=== PATIENT | female | born 1960 | race Caucasian/White ===

== ENCOUNTER 2016-08-22 23:55 | Emergency (ER) | payer BC ==
--- NOTE | 2016-08-23 00:25 | EDM.PDOC ---
ED HPI LOWER BACK PAIN/INJURY - General Chief Complaint: Back Pain or Injury Stated Complaint: PAIN IN BACK AND LEGS Time Seen by Provider: 08/23/16 00:24 - History of Present Illness INITIAL COMMENTS - FREE TEXT/NARRATIVE: 56-year-old female presents emergency room with severe back pain. This is been an ongoing problem progressively getting worse over the last couple months. Patient had her second back surgery in the middle of May and her back pain is worse after the surgery. She has radicular pain down her right leg occasionally down her left leg. She denies loss of bowel or bladder control. She's also being evaluated for abdominal pain. And is scheduled to see a specialist for this on Thursday. She had a CAT scan done at [place] this last week that was reported as normal according to the patient and her spouse. her abdominal pain seems to be making her back pain much worse. She has no associated nausea vomiting with this certainly no diarrhea she has constipation and uses when necessary stool softeners and milk of magnesia. She has not had any fevers or chills.she believes her abdominal pain is worse she has more difficulty breathing. The patient smokes at least a pack a day. She is cautioned about the risk of smoking especially with her back and breathing problems. - Related Data Allergies/ADRs: Allergies Allergy/AdvReac Type Severity Reaction Status Date / Time ceftriaxone [From Rocephin] Allergy Swelling Verified 08/23/16 00:09 Bandages all tape adhesives Allergy Swelling Uncoded 08/23/16 00:09 Home Meds: Home Meds Estradiol 2 mg PO DAILY 11/29/13 [History] DULoxetine [Cymbalta] 120 mg PO DAILY 06/13/16 [History] Hydrochlorothiazide 25 mg PO BID 06/13/16 [History] atorvaSTATin [Lipitor] 40 mg PO BEDTIME 06/13/16 [History] oxyCODONE HCl/Acetaminophen [oxyCODONE-Acetaminophen 5-325] 1 - 2 tab PO Q6H PRN 06/13/16 [History] Cyclobenzaprine [Flexeril] 10 mg PO BID PRN 08/23/16 [History] Eszopiclone [Lunesta] 2 mg PO BEDTIME PRN 08/23/16 [History] Gabapentin [Neurontin] 300 mg PO TID 08/23/16 [History] Lactulose [Constulose] 10 gm PO Q12H #450 ml 08/23/16 [Rx] Morphine Sulfate [Morphine Sulfate ER] 30 mg PO ASDIRECTED 08/23/16 [History] Potassium Citrate [Urocit-K] 10 meq PO TID 08/23/16 [History] Past Medical History Cardiovascular History: Reports: Other (see below) Other Cardiovascular History: "swelling" Respiratory History: Reports: Pneumonia, recurrent [employer]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: Musculoskeletal History: Reports: Back pain, chronic - Past Surgical History HEENT Surgical History: Reports: Tonsillectomy GI Surgical History: Reports: Cholecystectomy, Hernia, abdominal Female Surgical History: Reports: Hysterectomy Neurological Surgical History: Reports: Lumbar spine Musculoskeletal Surgical History: Reports: ORIF, Other (see below) Other Musculoskeletal Surgeries/Procedures:: back surgery x 2 Social & Family History - Family History Family Medical History: Noncontributory - Tobacco Use Smoking Status *Q: Current Every Day Smoker Years of Tobacco use: 30 Packs/Tins Daily: 1 Used Tobacco, but Quit: No Second Hand Smoke Exposure: No - Caffeine Use Caffeine Use: Reports: Coffee, Tea - Alcohol Use Days Per Week of Alcohol Use: 0 Number of Drinks Per Day: 0 Total Drinks Per Week: 0 - Recreational Drug Use Recreational Drug Use: No Drug Use in Last 12 Months: No ED ROS GENERAL - Review of Systems Review Of Systems: See Below Constitutional: Reports: no symptoms. Denies: fever, chills HEENT: Reports: No symptoms Respiratory: Reports: shortness of breath, cough. Denies: wheezing, pleuritic chest pain, hemoptysis Cardiovascular: Reports: No symptoms. Denies: Chest pain GI/Abdominal: Reports: Abdominal pain, Constipation. Denies: Diarrhea, Nausea, Vomiting : Reports: no symptoms Musculoskeletal: Reports: back pain, leg pain Skin: Reports: no symptoms Neurological: Reports: no symptoms. Denies: confusion, dizziness, headache ED EXAM,LOWER BACK PAIN/INJURY - Physical Exam Exam: See Below Exam Limited By: No limitations General Appearance: alert, moderate distress (she has severe pain at this time) Eye Exam: bilateral eye: normal inspection Nose: normal inspection, normal mucosa, no blood Throat/Mouth: Normal inspection, Normal lips, Normal teeth, Normal gums, Normal oropharynx, Normal voice, No airway compromise Head: atraumatic, normocephalic Neck: normal inspection, supple, non-tender, full range of motion. No: lymphadenopathy (L), lymphadenopathy (R) Respiratory/Chest: no respiratory distress, lungs clear, decreased breath sounds , other (initially she is breathing a little fast she is not breathing deep he states this is because of the abdominal pain). No: normal breath sounds Cardiovascular: normal peripheral pulses, regular rate, rhythm, no edema GI/Abdominal: normal bowel sounds, soft, other (diffuse discomfort in all 4 quadrants no rigidity no rebound or guarding) Back Exam: muscle spasm (she has noted muscle spasm in the lumbar region bilaterally). No: CVA tenderness (L), CVA tenderness (R), vertebral tenderness Neurological: alert, normal mood/affect Course - Vital Signs Last Recorded V/S: Last Vital Signs Temp 37.0 C 08/23/16 00:03 Pulse 82 08/23/16 03:14 Resp 18 08/23/16 03:14 BP 145/85 H 08/23/16 03:14 Pulse Ox 85 L 08/23/16 03:14 - Orders/Labs/Meds Orders: Active Orders 24 hr Category Date Time Status RT Aerosol Therapy [RC] ASDIRECTED Care 08/23/16 00:44 Active RT Post Treatment Assessment [RC] Click To Edit Care 08/23/16 02:54 Active RT Pre-Treatment Assessment [RC] Click To Edit Care 08/23/16 02:54 Active Abdomen 2V AP Flat Upright [CR] Stat Exams 08/23/16 02:08 Taken Abdomen Pelvis w Cont [CT] Stat Exams 08/23/16 02:03 Stop Req Chest 1V Frontal [CR] Stat Exams 08/23/16 00:41 Taken Labs: Laboratory Tests 08/23/16 08/23/16 Range/Units 00:58 00:58 WBC 11.00 H (3.98-10.04) K/mm3 RBC 4.78 (3.98-5.22) M/mm3 Hgb 16.1 H (11.2-15.7) gm/L Hct 47.1 H (34.1-44.9) % MCV 98.5 H (79.4-94.8) fl MCH 33.7 H (25.6-32.2) pg MCHC 34.2 (32.2-35.5) g/dl RDW Std Deviation 46.4 H (36.4-46.3) fL Plt Count 270 (182-369) K/mm3 MPV 9.0 L (9.4-12.3) fl Neutrophils % (Manual) 53 (40-60) % Band Neutrophils % 0 (0-10) % Lymphocytes % (Manual) 40 (20-40) % Atypical Lymphs % 0 % Monocytes % (Manual) 6 (2-10) % Eosinophils % (Manual) 1 (0.7-5.8) % Basophils % (Manual) 0 L (0.1-1.2) Platelet Estimate Adequate Plt Morphology Comment Normal Polychromasia 1+ slight Macrocytosis Rare Spherocytes Few RBC Morph Comment Not Reportable Sodium 140 (136-145) mEq/L Potassium 3.8 (3.5-5.1) mEq/L Chloride 99 (98-107) mEq/L Carbon Dioxide 32 (21-32) mEq/L Anion Gap 12.8 (5-15) BUN 12 (7-18) mg/dL Creatinine 0.8 (0.55-1.02) mg/dL Est Cr Clr Drug Dosing 72.34 mL/min Estimated GFR (MDRD) > 60 (>60) mL/min BUN/Creatinine Ratio 15.0 (14-18) Glucose 103 (74-106) mg/dL Calcium 8.7 (8.5-10.1) mg/dL Total Bilirubin 0.2 (0.2-1.0) mg/dL AST 12 L (15-37) U/L ALT 20 (14-59) U/L Alkaline Phosphatase 86 (46-116) U/L Total Protein 6.5 (6.4-8.2) g/dl Albumin 3.0 L (3.4-5.0) g/dl Globulin 3.5 gm/dL Albumin/Globulin Ratio 0.9 L (1-2) Lipase 104 (73-393) U/L Meds: Medications Discontinued Medications Generic Name Dose Route Start Last Admin Trade Name Freq PRN Reason Stop Dose Admin Albuterol 6 gm 08/23/16 02:53 08/23/16 03:27 Proventil Hfa INH 08/23/16 02:54 Not Given ONETIME ONE Albuterol/Ipratropium 3 ml 08/23/16 00:43 08/23/16 00:59 Duoneb 3.0-0.5 Mg/3 Ml NEB 08/23/16 00:44 3 ml ONETIME ONE Administration Sodium Chloride 500 mls @ 999 mls/hr 08/23/16 02:01 08/23/16 02:10 Normal Saline IV 08/23/16 02:31 999 mls/hr .BOLUS ONE Administration Sodium Chloride 1,000 mls @ 125 mls/hr 08/23/16 02:15 Normal Saline IV ASDIRECTED [facility] Morphine Sulfate 4 mg 08/23/16 02:00 08/23/16 02:05 Morphine IVPUSH 08/23/16 02:01 4 mg ONETIME ONE Administration - Re-Assessments/Exams Free Text/Narrative Re-Assessment/Exam: 08/23/16 01:18 patient is breathing better and is much more comfortable after nebulizer treatment 08/23/16 02:48 patient had return of her pain she was given 4 mg of morphine and is doing much better. X-ray of her abdomen shows considerable stool accumulation in thinking a lot of her abdominal pain might be related to constipation. Her O2 saturation is been suboptimal before we gave her morphine. She did okay and supplemental oxygen. At this time we are trying her off the oxygen again to see how she does. we will try her on and albuterol MDI. 08/23/16 03:04 patient is refusing oxygen at this time and as it turns out she uses an albuterol inhaler at home.she has a followup in the clinic on Thursday and wants to think about additional breathing therapy. She is in agreement to try the lactulose for constipation. Departure - Departure Time of Disposition: 03:05 Disposition: Home, Self-Care 01 Clinical Impression: Back pain, Constipation, Abdominal pain, Hypoxia Prescriptions: Lactulose [Constulose] 10 gm PO Q12H #450 ml Instructions: Hypoxemia, Back Pain, Adult, Constipation, Adult, [id number], Abdominal Pain, Adult, [id number] Referrals: Jenni Luu PA-C [Primary Care Provider] - Forms: ED Department Discharge Additional Instructions: Return to the emergency room with any questions or problems. Your started on lactulose 1 tablespoon twice daily for your constipation. Followup with your regular provider as soon as she can in the clinic to discuss oxygen therapy and increasing your inhaler therapy for your lung disease.also discuss oxygen therapy - My Orders Last 24 Hours: My Active Orders 08/23/16 00:41 Chest 1V Frontal [CR] Stat 08/23/16 00:44 RT Aerosol Therapy [RC] ASDIRECTED 08/23/16 02:03 Abdomen Pelvis w Cont [CT] Stat 08/23/16 02:08 Abdomen 2V AP Flat Upright [CR] Stat 08/23/16 02:54 RT Post Treatment Assessment [RC] Click To Edit RT Pre-Treatment Assessment [RC] Click To Edit - Assessment/Plan Last 24 Hours: My Active Orders 08/23/16 00:41 Chest 1V Frontal [CR] Stat 08/23/16 00:44 RT Aerosol Therapy [RC] ASDIRECTED 08/23/16 02:03 Abdomen Pelvis w Cont [CT] Stat 08/23/16 02:08 Abdomen 2V AP Flat Upright [CR] Stat 08/23/16 02:54 RT Post Treatment Assessment [RC] Click To Edit RT Pre-Treatment Assessment [RC] Click To Edit
[2016-08-23] MEDS ORDERED: Albuterol/Ipratropium 3.0-0.5 MG/3 ML Neb Soln NEB ONE (00:43)
[2016-08-23] MEDS ORDERED: Morphine 4 MG/ML Syringe IVPUSH ONE (02:00)
[2016-08-23] MEDS ORDERED: Sodium Chloride 0.9% 500 ML IV ONE (02:01)
[2016-08-23] MEDS ORDERED: Sodium Chloride 0.9% 1,000 ML IV SCH (02:15)
[2016-08-23] MEDS ORDERED: Albuterol 6.7 GM Inhaler INH ONE (02:53)
[2016-08-23 03:16] VITALS: BP 145/85
--- NOTE | 2016-08-25 07:37 | CR ---
Abdomen: Supine and upright views of the abdomen were obtained. Surgical clips seen within the upper right abdomen from prior cholecystectomy. Additional surgical clips are seen overlying the lower lumbar spine presumably from lower lumbar spine surgery. Slight increased stool within the colon is seen. Bowel gas pattern is otherwise unremarkable. No free air is seen. No abnormal calcifications or discrete soft tissue abnormality is seen. Impression: 1. Slight increased stool within the colon. 2. Other incidental findings. Diagnostic code #2
--- NOTE | 2016-08-25 07:37 | CR ---
Chest: Portable view of the chest was obtained. Comparison: No previous study. Heart size and mediastinum are normal. Lungs are clear. Bony structures are grossly intact. Impression: 1. Nothing acute is identified on portable chest x-ray. Diagnostic code #1
== END 2016-08-23 03:27 | disposition home or self-care (01) ==
LOC: JD.ED 23:55
DX: M54.9 Dorsalgia, unspecified (principal); K59.00 Constipation, unspecified; R09.02 Hypoxemia; F17.210 Nicotine dependence, cigarettes, uncomplicated; Z90.49 Acquired absence of other specified parts of digestive tract; Z98.890 Other specified postprocedural states; Z90.710 Acquired absence of both cervix and uterus; Z79.899 Other long term (current) drug therapy; Z88.1 Allergy status to other antibiotic agents
CPT/HCPCS: 36415; 71010; 74020; 80053; 83690; 85025; 94664; 96361; 96374; 99284; J2270; J7040

== ENCOUNTER 2016-08-25 12:24 | Emergency (ER) | payer BC ==
[2016-08-25 12:36] VITALS: BP 128/76
[2016-08-25] MEDS ORDERED: Sodium Chloride 0.9% 10 ML Syringe FLUSH PRN (12:51)
[2016-08-25] MEDS ORDERED: Albuterol 0.083% 2.5 MG/3 ML Neb Soln NEB ONE ×2 (12:51→14:00)
[2016-08-25] MEDS ORDERED: methylPREDNISolone Sodium Succinate 125 MG/2 ML SDV IVPUSH ONE (12:51)
--- NOTE | 2016-08-25 14:42 | CR ---
Chest: Portable view of the chest was obtained. Comparison: Previous chest x-ray of 08/23/16. Heart size and mediastinum are within normal limits for portable technique. Lungs are clear with no acute infiltrates. Bony structures are grossly intact. Surgical clips are seen from prior cholecystectomy. Impression: 1. Incidental findings. Nothing acute is identified on portable chest x-ray. Diagnostic code #2
--- NOTE | 2016-08-25 14:47 | EDM.PDOC ---
ED HISTORY OF PRESENT ILLNESS - General Chief Complaint: Respiratory Problem Stated Complaint: LOW OXYGEN SENT BY CLINIC Time Seen by Provider: 08/25/16 12:36 Source of Information: Reports: Patient, RN notes reviewed - History of Present Illness INITIAL COMMENTS - FREE TEXT/NARRATIVE: 56-year-old female has been sent over from clinic for evaluation of hypoxia. She presented to the clinic with concerns of low back and abdominal discomfort. However screening vitals showed sats in the mid-80s. Therefore transferred here for further evaluation. She does smoke, I suspect more than her stated less than one pack daily. She has been coughing frequently but that has been mostly dry nonproductive. She denies chest pain. She states she is really not feel any more short of breath than "usual". No recent fever or chills. His been having a lot of difficulty with low back pain this past few weeks. She did present here to the ED just 3 days ago with concerns of more severe low back pain than usual. She does take morphine twice a day chronically and also oxycodone 5 mg 1- 2 tabs every 4 hours when necessary pain. She states she does get constipated at times. Asad discomfort is intermittent upper and lower abdominal. No recent nausea or vomiting. No recent voiding symptomatology. - Related Data Allergies/ADRs: Allergies Allergy/AdvReac Type Severity Reaction Status Date / Time ceftriaxone [From Rocephin] Allergy Swelling Verified 08/25/16 12:36 Bandages all tape adhesives Allergy Swelling Uncoded 08/25/16 12:36 Home Meds: Home Meds Estradiol 2 mg PO DAILY 11/29/13 [History] DULoxetine [Cymbalta] 60 mg PO BID 06/13/16 [History] Hydrochlorothiazide 25 mg PO BID 06/13/16 [History] atorvaSTATin [Lipitor] 40 mg PO BEDTIME 06/13/16 [History] Cyclobenzaprine [Flexeril] 10 mg PO TID PRN 08/23/16 [History] Eszopiclone [Lunesta] 2 mg PO BEDTIME PRN 08/23/16 [History] Gabapentin [Neurontin] 300 mg PO TID 08/23/16 [History] Lactulose [Constulose] 10 gm PO Q12H #450 ml 08/23/16 [Rx] Morphine Sulfate [Morphine Sulfate ER] 60 mg PO DAILY 08/23/16 [History] Potassium Citrate [Urocit-K] 10 meq PO TID 08/23/16 [History] Aspirin 81 mg PO DAILY 08/25/16 [History] Esomeprazole [NexIUM] 40 mg PO ACBREAKFAST 08/25/16 [History] Morphine Sulfate [Morphine Sulfate ER] 30 mg PO BEDTIME 08/25/16 [History] oxyCODONE 1 - 2 tab PO Q4H PRN 08/25/16 [History] Past Medical History Cardiovascular History: Reports: Other (see below) Other Cardiovascular History: "swelling" Respiratory History: Reports: Pneumonia, recurrent Genitourinary History: Reports: Renal calculus [employer]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: Musculoskeletal History: Reports: Back pain, chronic - Past Surgical History HEENT Surgical History: Reports: Tonsillectomy GI Surgical History: Reports: Cholecystectomy, Hernia, abdominal Female Surgical History: Reports: Hysterectomy Neurological Surgical History: Reports: Lumbar spine Musculoskeletal Surgical History: Reports: ORIF Social & Family History - Family History Family Medical History: Noncontributory - Tobacco Use Smoking Status *Q: Current Every Day Smoker Years of Tobacco use: 40 Packs/Tins Daily: 1 Used Tobacco, but Quit: No Second Hand Smoke Exposure: No - Caffeine Use Caffeine Use: Reports: Coffee, Tea - Alcohol Use Days Per Week of Alcohol Use: 0 Number of Drinks Per Day: 0 Total Drinks Per Week: 0 - Recreational Drug Use Recreational Drug Use: No Drug Use in Last 12 Months: No ED ROS GENERAL - Review of Systems Review Of Systems: See Below Constitutional: Denies: fever, chills HEENT: Denies: Sinus problem, Throat pain, Throat swelling Respiratory: Reports: shortness of breath (mild chronically, no worse than usual ), wheezing (frequent, chronic), cough (mostly nonproductive, chronic). Denies : hemoptysis Cardiovascular: Denies: Chest pain GI/Abdominal: Reports: Constipation (intermittent). Denies: Abdominal pain, Diarrhea, Nausea, Vomiting : Reports: no symptoms Musculoskeletal: Reports: back pain (severe, chronic) Skin: Denies: rash Neurological: Reports: difficulty walking (increased back pain with ambulation) . Denies: weakness ED EXAM, GENERAL - Physical Exam Exam: See Below General Appearance: alert, moderate distress Eye Exam: bilateral eye: PERRL Nose: normal inspection Throat/Mouth: Normal inspection, Normal oropharynx Head: atraumatic. No: facial swelling Neck: supple Respiratory/Chest: respiratory distress (moderate tachypnea), decreased breath sounds (bilateral), wheezing (I'll). No: rhonchi, stridor Cardiovascular: tachycardia GI/Abdominal: soft, tender (mild tenderness upper mid abdomen and lower mid abdomen). No: guarding Back Exam: No: CVA tenderness (L), CVA tenderness (R) Extremities: No: pedal edema, leg pain Neurological: no motor/sensory deficits Skin Exam: Warm, Dry, Normal color, No rash Course - Vital Signs Last Recorded V/S: Last Vital Signs Temp 97.8 F 08/25/16 12:31 Pulse 101 H 08/25/16 12:31 Resp 23 H 08/25/16 12:31 BP 128/76 08/25/16 12:31 Pulse Ox 91 L 08/25/16 14:17 - Orders/Labs/Meds Orders: Active Orders 24 hr Category Date Time Status Peripheral IV Care [RC] . DIRECTED Care 08/25/16 12:51 Active RT Aerosol Therapy [RC] ASDIRECTED Care 08/25/16 12:51 Active RT Aerosol Therapy [RC] ASDIRECTED Care 08/25/16 14:00 Active Sodium Chloride 0.9% [Saline Flush] Med 08/25/16 12:51 Active 10 ml FLUSH ASDIRECTED PRN Peripheral IV Insertion Adult [OM.PC] Stat Oth 08/25/16 12:50 Ordered Medication Orders Sodium Chloride (Saline Flush) 10 ml FLUSH ASDIRECTED PRN PRN Reason: Keep Vein Open Last Admin: 08/25/16 13:12 Dose: 10 ml Labs: Laboratory Tests 08/25/16 08/25/16 08/25/16 Range/Units 13:00 13:00 13:00 WBC 12.15 H (3.98-10.04) K/mm3 RBC 4.61 (3.98-5.22) M/mm3 Hgb 15.6 (11.2-15.7) gm/L Hct 45.0 H (34.1-44.9) % MCV 97.6 H (79.4-94.8) fl MCH 33.8 H (25.6-32.2) pg MCHC 34.7 (32.2-35.5) g/dl RDW Std Deviation 45.1 (36.4-46.3) fL Plt Count 291 (182-369) K/mm3 MPV 9.3 L (9.4-12.3) fl Neut % (Auto) 61.4 (34.0-71.1) % Lymph % (Auto) 24.6 (19.3-51.7) % [place] % (Auto) 11.6 (4.7-12.5) % Eos % (Auto) 2.0 (0.7-5.8) Baso % (Auto) 0.2 (0.1-1.2) % Neut # 7.46 H (1.56-6.13) K/mm3 Lymph # 2.99 (1.18-3.74) K/mm3 [place] # 1.41 H (0.24-0.36) K/mm3 Eos # 0.24 (0.04-0.36) K/mm3 Baso # 0.03 (0.01-0.08) K/mm3 D-Dimer, Quantitative 0.49 (0.19-0.59) mg/L Puncture Site ABG pH (7.35-7.45) ABG pCO2 (35.0-45.0) mmHg ABG pO2 (80.0-100.0) mmHg ABG HCO3 (22.0-26.0) meq/L ABG O2 Saturation (96.0-97.0) % ABG Base Excess (-2-2.0) ABG Carboxyhemoglobin (0.00-1.50) %THgb A-a Gradient mmHg FiO2 (21.00-100.00) % Sodium (136-145) mEq/L Potassium (3.5-5.1) mEq/L Chloride (98-107) mEq/L Carbon Dioxide (21-32) mEq/L Anion Gap (5-15) BUN (7-18) mg/dL Creatinine (0.55-1.02) mg/dL Est Cr Clr Drug Dosing Estimated GFR (MDRD) (>60) mL/min BUN/Creatinine Ratio (14-18) Glucose (74-106) mg/dL Calcium (8.5-10.1) mg/dL Total Bilirubin (0.2-1.0) mg/dL AST (15-37) U/L ALT (14-59) U/L Alkaline Phosphatase (46-116) U/L C-Reactive Protein 4.1 H* (<1.0) mg/dL Total Protein (6.4-8.2) g/dl Albumin (3.4-5.0) g/dl Globulin gm/dL Albumin/Globulin Ratio (1-2) 08/25/16 08/25/16 08/25/16 Range/Units 13:00 15:14 15:14 WBC (3.98-10.04) K/mm3 RBC (3.98-5.22) M/mm3 Hgb (11.2-15.7) gm/L Hct (34.1-44.9) % MCV (79.4-94.8) fl MCH (25.6-32.2) pg MCHC (32.2-35.5) g/dl RDW Std Deviation (36.4-46.3) fL Plt Count (182-369) K/mm3 MPV (9.4-12.3) fl Neut % (Auto) (34.0-71.1) % Lymph % (Auto) (19.3-51.7) % [place] % (Auto) (4.7-12.5) % Eos % (Auto) (0.7-5.8) Baso % (Auto) (0.1-1.2) % Neut # (1.56-6.13) K/mm3 Lymph # (1.18-3.74) K/mm3 [place] # (0.24-0.36) K/mm3 Eos # (0.04-0.36) K/mm3 Baso # (0.01-0.08) K/mm3 D-Dimer, Quantitative (0.19-0.59) mg/L Puncture Site Lt radial ABG pH 7.45 (7.35-7.45) ABG pCO2 45.3 H (35.0-45.0) mmHg ABG pO2 48.0 L (80.0-100.0) mmHg ABG HCO3 30.8 H (22.0-26.0) meq/L ABG O2 Saturation 88.8 L (96.0-97.0) % ABG Base Excess 6.1 H (-2-2.0) ABG Carboxyhemoglobin 9.9 H (0.00-1.50) %THgb A-a Gradient 37 mmHg FiO2 21.00 (21.00-100.00) % Sodium 135 L (136-145) mEq/L Potassium 2.9 L (3.5-5.1) mEq/L Chloride 97 L (98-107) mEq/L Carbon Dioxide 32 (21-32) mEq/L Anion Gap 8.9 (5-15) BUN 7 (7-18) mg/dL Creatinine 0.7 (0.55-1.02) mg/dL Est Cr Clr Drug Dosing TNP Estimated GFR (MDRD) > 60 (>60) mL/min BUN/Creatinine Ratio 10.0 L (14-18) Glucose 112 H (74-106) mg/dL Calcium 8.8 (8.5-10.1) mg/dL Total Bilirubin 0.5 (0.2-1.0) mg/dL AST 15 (15-37) U/L ALT 21 (14-59) U/L Alkaline Phosphatase 98 (46-116) U/L C-Reactive Protein (<1.0) mg/dL Total Protein 6.5 (6.4-8.2) g/dl Albumin 3.1 L (3.4-5.0) g/dl Globulin 3.4 gm/dL Albumin/Globulin Ratio 0.9 L (1-2) Meds: Medications Generic Name Dose Route Start Last Admin Trade Name Freq PRN Reason Stop Dose Admin Sodium Chloride 10 ml 08/25/16 12:51 08/25/16 13:12 Saline Flush FLUSH 10 ml ASDIRECTED PRN Administration Keep Vein Open Discontinued Medications Generic Name Dose Route Start Last Admin Trade Name Freq PRN Reason Stop Dose Admin Albuterol 2.5 mg 08/25/16 12:51 08/25/16 13:08 Proventil Neb Soln NEB 08/25/16 12:52 2.5 mg ONETIME ONE Administration Albuterol 2.5 mg 08/25/16 14:00 08/25/16 14:17 Proventil Neb Soln NEB 08/25/16 14:01 2.5 mg ONETIME ONE Administration Methylprednisolone Sodium Succinate 125 mg 08/25/16 12:51 08/25/16 13:10 Solu-Medrol IVPUSH 08/25/16 12:52 125 mg ONETIME ONE Administration - Re-Assessments/Exams Free Text/Narrative Re-Assessment/Exam: 08/25/16 14:47 d-dimer is come back negative, white blood count and C-reactive protein both mildly elevated. Chest x-ray is clear, does not show infiltrate. Sats have been running about 88-91% on 2 L nasal cannula. Turned her oxygen off about 5 or 10 minutes ago. Sats did drop to the 85 to 86% range. I am going to leave her on room air for at least 15 minutes and then check ABGs. She may need home oxygen. 08/25/16 16:00. PO2 is 88.9, ABGs room air. Of note her carboxyhemoglobin was 9.9%. I visit with patient and her about that they have electric heat so faulty furnace is not concern. They do have a gas stove use that only for cooking. He has no symptoms of headache shortness of breath or any other signs or symptoms for carbon monoxide poisoning. It appears that this is due to her heavy smoking. This has been discussed with patient and her . She admits that she is smoking more with her increased low back pain. I'm going to prescribe an antibiotic for her, have her take prednisone for the next week and also have her start using a nebulizer, albuterol nebs every 4-6 hours while awake. She will follow up with Jenni Luu, her provider at the clinic in about 3-4 days. I have discussed this with so she is aware. Discharge instructions as documented Departure - Departure Time of Disposition: 16:03 Disposition: Home, Self-Care 01 Condition: poor Clinical Impression: COPD exacerbation, Hypoxia, Bronchitis Referrals: Jenni Luu PA-C [Primary Care Provider] - Forms: ED Department Discharge Additional Instructions: Stop smoking or at least cut back as best you can, albuterol neb q 4 to 6 hr, zpack and prednisone as prescribed, follow up clinic with Jenni in about 3 to 4 days, call for appt. , return to ED as needed. - My Orders Last 24 Hours: My Active Orders 08/25/16 12:50 Peripheral IV Insertion Adult [OM.PC] Stat 08/25/16 12:51 Peripheral IV Care [RC] . DIRECTED RT Aerosol Therapy [RC] ASDIRECTED Sodium Chloride 0.9% [Saline Flush] 10 ml FLUSH ASDIRECTED PRN 08/25/16 14:00 RT Aerosol Therapy [RC] ASDIRECTED - Assessment/Plan Last 24 Hours: My Active Orders 08/25/16 12:50 Peripheral IV Insertion Adult [OM.PC] Stat 08/25/16 12:51 Peripheral IV Care [RC] . DIRECTED RT Aerosol Therapy [RC] ASDIRECTED Sodium Chloride 0.9% [Saline Flush] 10 ml FLUSH ASDIRECTED PRN 08/25/16 14:00 RT Aerosol Therapy [RC] ASDIRECTED
== END 2016-08-25 16:35 | disposition home or self-care (01) ==
LOC: JD.ED 12:24
DX: J44.1 Chronic obstructive pulmonary disease with (acute) exacerbation (principal); J40 Bronchitis, not specified as acute or chronic; F17.210 Nicotine dependence, cigarettes, uncomplicated; Z87.01 Personal history of pneumonia (recurrent); Z98.890 Other specified postprocedural states; Z90.49 Acquired absence of other specified parts of digestive tract; Z90.710 Acquired absence of both cervix and uterus; Z79.82 Long term (current) use of aspirin; Z79.899 Other long term (current) drug therapy; Z88.1 Allergy status to other antibiotic agents
CPT/HCPCS: 36415; 36600; 71010; 80053; 82375; 82803; 85025; 85379; 86140; 94640; 94664; 96374; 99284; J2930; J7050

== ENCOUNTER 2016-09-02 21:36 | Emergency (ER) | payer BC ==
[2016-09-02 21:49] VITALS: BP 129/74
[2016-09-02] MEDS ORDERED: Sodium Chloride 0.9% 10 ML Syringe FLUSH PRN (21:55)
[2016-09-02] MEDS ORDERED: Sodium Chloride 0.9% 1,000 ML IV SCH (22:00)
[2016-09-02] MEDS ORDERED: LORazepam 1 MG Tab PO ONE (22:21)
[2016-09-02] MEDS ORDERED: Acetaminophen 325 MG Tab PO ONE (23:19)
[2016-09-03] MEDS ORDERED: Albuterol/Ipratropium 3.0-0.5 MG/3 ML Neb Soln NEB ONE (00:23)
[2016-09-03] MEDS ORDERED: methylPREDNISolone Sodium Succinate 125 MG/2 ML SDV IVPUSH ONE (00:23)
--- NOTE | 2016-09-03 00:41 | EDM.PDOC ---
<Wilberto Uribe Nader - Last Filed: 09/03/16 08:52> ED HISTORY OF PRESENT ILLNESS - General Chief Complaint: Respiratory Problem Stated Complaint: SOB Time Seen by Provider: 09/02/16 21:56 Source of Information: Reports: Patient, Family (), RN notes reviewed - History of Present Illness INITIAL COMMENTS - FREE TEXT/NARRATIVE: 56-year-old female comes in with cough, fever and upper abdominal discomfort. She has been having difficulty with cough for about the past 2 weeks. She's been evaluated a couple of prior times here in the ED for cough and shortness of breath and also has been seeing her provider at the clinic. SHe was started on a Z-Brennen and prednisone about 8 days ago. She's finished both of those. Today she started with worsening upper abd discomfort which she has had off and on for the past several weeks. She's been diagnosed with constipation. She is on morphine in addition to her other meds for chronic low back pain. She has been advised to stop smoking but admitted the last time I saw her that she is smoking more because of her increased low back discomfort. Her fever and chills just started today. She's now been off the Z-Brennen for 3 days. She states that she has been having regular BMs about once or twice a day. She denies voiding symptomatology. Her discomfort today is primarily right upper abdomen with some radiation to the back. She did have her gallbladder removed about 2 years ago - Related Data Allergies/ADRs: Allergies Allergy/AdvReac Type Severity Reaction Status Date / Time ceftriaxone [From Rocephin] Allergy Swelling Verified 09/02/16 21:43 NSAIDS (Non-Steroidal Allergy Abdominal Verified 09/02/16 21:43 Anti-Inflamma Pain Bandages all tape adhesives Allergy Swelling Uncoded 09/02/16 21:43 Home Meds: Home Meds Estradiol 2 mg PO DAILY 11/29/13 [History] DULoxetine [Cymbalta] 60 mg PO BID 06/13/16 [History] Hydrochlorothiazide 25 mg PO BID 06/13/16 [History] atorvaSTATin [Lipitor] 40 mg PO BEDTIME 06/13/16 [History] Cyclobenzaprine [Flexeril] 10 mg PO TID PRN 08/23/16 [History] Eszopiclone [Lunesta] 2 mg PO BEDTIME PRN 08/23/16 [History] Gabapentin [Neurontin] 300 mg PO TID 08/23/16 [History] Lactulose [Constulose] 10 gm PO Q12H #450 ml 08/23/16 [Rx] Morphine Sulfate [Morphine Sulfate ER] 100 mg PO BID 08/23/16 [History] Potassium Citrate [Urocit-K] 10 meq PO TID 08/23/16 [History] Aspirin 81 mg PO DAILY 08/25/16 [History] Esomeprazole [NexIUM] 40 mg PO ACBREAKFAST 08/25/16 [History] oxyCODONE 1 - 2 tab PO Q4H PRN 08/25/16 [History] Past Medical History HEENT History: Reports: Impaired vision Other HEENT History: Wears glasses Cardiovascular History: Reports: Other (see below) Other Cardiovascular History: "swelling" Respiratory History: Reports: Pneumonia, recurrent Genitourinary History: Reports: Renal calculus [employer] History: Reports: Musculoskeletal History: Reports: Back pain, chronic - Past Surgical History HEENT Surgical History: Reports: Tonsillectomy GI Surgical History: Reports: Cholecystectomy, Hernia, abdominal Female Surgical History: Reports: Hysterectomy Neurological Surgical History: Reports: Lumbar spine Musculoskeletal Surgical History: Reports: ORIF Social & Family History - Family History Family Medical History: Noncontributory - Tobacco Use Smoking Status *Q: Current Every Day Smoker Years of Tobacco use: 1 Packs/Tins Daily: 39 Used Tobacco, but Quit: No Second Hand Smoke Exposure: No - Caffeine Use Caffeine Use: Reports: None - Alcohol Use Days Per Week of Alcohol Use: 0 Number of Drinks Per Day: 0 Total Drinks Per Week: 0 - Recreational Drug Use Recreational Drug Use: No Drug Use in Last 12 Months: No ED ROS GENERAL - Review of Systems Review Of Systems: See Below Constitutional: Reports: fever, chills HEENT: Denies: Sinus problem, Throat pain, Throat swelling Respiratory: Reports: Shortness of Breath, Wheezing, Cough, Sputum (scan) Cardiovascular: Reports: Chest pain (with coughing) GI/Abdominal: Reports: Abdominal pain (right upper abdominal), Constipation ( history of constipation but claims she has been having 1-2 BMs per day). Denies: Diarrhea, Nausea, Vomiting : Reports: no symptoms Musculoskeletal: Reports: back pain (chronic low back) Skin: Reports: no symptoms Neurological: Reports: Numbness (bilateral hands). Denies: Weakness ED EXAM, GENERAL - Physical Exam Exam: See Below General Appearance: alert, anxious (hyperventilating on arrival to ED, hands are numb), moderate distress Eye Exam: bilateral eye: PERRL Nose: normal inspection Throat/Mouth: Normal inspection, Normal oropharynx Head: atraumatic. No: facial swelling Neck: supple, full range of motion Respiratory/Chest: respiratory distress (mild tachypnea). No: rales, rhonchi, wheezing Cardiovascular: tachycardia GI/Abdominal: tender (mild to moderate tenderness right upper quadrant and upper midabdomen, lower abdomen is soft and nontender). No: guarding, rebound Back Exam: paraspinal tenderness (bilateral low back) Extremities: normal range of motion, pedal edema (mild bilateral). No: leg pain , increased warmth, redness Skin Exam: Warm, Dry Course - Vital Signs Last Recorded V/S: Last Vital Signs Temp 39.7 C H 09/02/16 23:30 Pulse 103 H 09/02/16 21:46 Resp 26 H 09/03/16 08:22 BP 129/74 09/02/16 21:46 Pulse Ox 90 L 09/03/16 08:22 - Orders/Labs/Meds Orders: Active Orders 24 hr Category Date Time Status EKG 12 Lead [EKG Documentation Completion] [RC] STAT Care 09/02/16 21:41 Active Peripheral IV Care [RC] . DIRECTED Care 09/02/16 21:55 Active RT Aerosol Therapy [RC] ASDIRECTED Care 09/03/16 00:23 Active CULTURE BLOOD [BC] Stat Lab 09/02/16 21:55 Received CULTURE BLOOD [BC] Stat Lab 09/02/16 22:45 Received Peripheral IV Insertion Adult [OM.PC] Stat Oth 09/02/16 21:55 Ordered Labs: Laboratory Tests 09/02/16 09/02/16 09/02/16 Range/Units 22:30 22:30 22:30 WBC 16.79 H (3.98-10.04) K/mm3 RBC 4.65 (3.98-5.22) M/mm3 Hgb 15.4 (11.2-15.7) gm/L Hct 46.0 H (34.1-44.9) % MCV 98.9 H (79.4-94.8) fl MCH 33.1 H (25.6-32.2) pg MCHC 33.5 (32.2-35.5) g/dl RDW Std Deviation 46.1 (36.4-46.3) fL Plt Count 265 (182-369) K/mm3 MPV 9.3 L (9.4-12.3) fl Neut % (Auto) 64.9 (34.0-71.1) % Lymph % (Auto) 21.6 (19.3-51.7) % [place] % (Auto) 10.7 (4.7-12.5) % Eos % (Auto) 2.3 (0.7-5.8) Baso % (Auto) 0.2 (0.1-1.2) % Neut # 10.90 H (1.56-6.13) K/mm3 Lymph # 3.62 (1.18-3.74) K/mm3 [place] # 1.80 H (0.24-0.36) K/mm3 Eos # 0.39 H (0.04-0.36) K/mm3 Baso # 0.03 (0.01-0.08) K/mm3 Manual Slide Review Not Reportable Sodium 138 (136-145) mEq/L Potassium 3.6 (3.5-5.1) mEq/L Chloride 99 (98-107) mEq/L Carbon Dioxide 28 (21-32) mEq/L Anion Gap 14.6 (5-15) BUN 12 (7-18) mg/dL Creatinine 0.8 (0.55-1.02) mg/dL Est Cr Clr Drug Dosing TNP Estimated GFR (MDRD) > 60 (>60) mL/min BUN/Creatinine Ratio 15.0 (14-18) Glucose 102 (74-106) mg/dL Lactic Acid (0.4-2.0) mmol/L Calcium 8.5 (8.5-10.1) mg/dL Total Bilirubin 0.3 (0.2-1.0) mg/dL GGT (5-55) U/L AST 11 L (15-37) U/L ALT 24 (14-59) U/L Alkaline Phosphatase 83 (46-116) U/L C-Reactive Protein 6.2 H* (<1.0) mg/dL Total Protein 6.3 L (6.4-8.2) g/dl Albumin 3.2 L (3.4-5.0) g/dl Globulin 3.1 gm/dL Albumin/Globulin Ratio 1.0 (1-2) Lipase (73-393) U/L Urine Color (Yellow) Urine Appearance (Clear) Urine pH (5.0-8.0) Ur Specific [place] (1.005-1.030) Urine Protein (Negative) Urine Glucose (UA) (Negative) Urine Ketones (Negative) Urine Occult Blood (Negative) Urine Nitrite (Negative) Urine Bilirubin (Negative) Urine Urobilinogen (0.2-1.0) Ur Leukocyte Esterase (Negative) 09/02/16 09/02/16 09/03/16 Range/Units 22:30 22:30 00:33 WBC (3.98-10.04) K/mm3 RBC (3.98-5.22) M/mm3 Hgb (11.2-15.7) gm/L Hct (34.1-44.9) % MCV (79.4-94.8) fl MCH (25.6-32.2) pg MCHC (32.2-35.5) g/dl RDW Std Deviation (36.4-46.3) fL Plt Count (182-369) K/mm3 MPV (9.4-12.3) fl Neut % (Auto) (34.0-71.1) % Lymph % (Auto) (19.3-51.7) % [place] % (Auto) (4.7-12.5) % Eos % (Auto) (0.7-5.8) Baso % (Auto) (0.1-1.2) % Neut # (1.56-6.13) K/mm3 Lymph # (1.18-3.74) K/mm3 [place] # (0.24-0.36) K/mm3 Eos # (0.04-0.36) K/mm3 Baso # (0.01-0.08) K/mm3 Manual Slide Review Sodium (136-145) mEq/L Potassium (3.5-5.1) mEq/L Chloride (98-107) mEq/L Carbon Dioxide (21-32) mEq/L Anion Gap (5-15) BUN (7-18) mg/dL Creatinine (0.55-1.02) mg/dL Est Cr Clr Drug Dosing Estimated GFR (MDRD) (>60) mL/min BUN/Creatinine Ratio (14-18) Glucose (74-106) mg/dL Lactic Acid 1.8 (0.4-2.0) mmol/L Calcium (8.5-10.1) mg/dL Total Bilirubin (0.2-1.0) mg/dL GGT 34 (5-55) U/L AST (15-37) U/L ALT (14-59) U/L Alkaline Phosphatase (46-116) U/L C-Reactive Protein (<1.0) mg/dL Total Protein (6.4-8.2) g/dl Albumin (3.4-5.0) g/dl Globulin gm/dL Albumin/Globulin Ratio (1-2) Lipase 98 (73-393) U/L Urine Color Yellow (Yellow) Urine Appearance Clear (Clear) Urine pH 7.5 (5.0-8.0) Ur Specific [place] 1.015 (1.005-1.030) Urine Protein Negative (Negative) Urine Glucose (UA) Negative (Negative) Urine Ketones Negative (Negative) Urine Occult Blood Negative (Negative) Urine Nitrite Negative (Negative) Urine Bilirubin Negative (Negative) Urine Urobilinogen 0.2 (0.2-1.0) Ur Leukocyte Esterase Negative (Negative) Meds: Medications Discontinued Medications Generic Name Dose Route Start Last Admin Trade Name Freq PRN Reason Stop Dose Admin Acetaminophen 975 mg 09/02/16 23:19 09/02/16 23:30 Tylenol PO 09/02/16 23:20 975 mg NOW ONE Administration Albuterol/Ipratropium 3 ml 09/03/16 00:23 09/03/16 00:30 Duoneb 3.0-0.5 Mg/3 Ml NEB 09/03/16 00:24 3 ml ONETIME ONE Administration Sodium Chloride 1,000 mls @ 999 mls/hr 09/02/16 22:00 09/02/16 22:13 Normal Saline IV 999 mls/hr ONETIME NICOLÁS Administration Levofloxacin/Dextrose 750 mg/ 150 mls @ 100 mls/hr 09/03/16 02:39 09/03/16 02 :55 Premix IV 09/03/16 04:08 100 mls/hr ONETIME ONE Administration Levofloxacin 500 mg 09/03/16 02:27 Levaquin PO 09/03/16 02:28 ONETIME ONE Lorazepam 1 mg 09/02/16 22:21 09/02/16 22:29 Ativan PO 09/02/16 22:22 1 mg ONETIME ONE Administration Methylprednisolone Sodium Succinate 125 mg 09/03/16 00:23 09/03/16 00:41 Solu-Medrol IVPUSH 09/03/16 00:24 125 mg ONETIME ONE Administration Sodium Chloride 10 ml 09/02/16 21:55 09/02/16 22:14 Saline Flush FLUSH 10 ml ASDIRECTED PRN Administration Keep Vein Open - Re-Assessments/Exams Free Text/Narrative Re-Assessment/Exam: 09/03/16 00:15. chest x-ray shows definite haziness and probable infiltrates along the left heart border. The left heart border is not well visualized at all , this is an interval change from chest x-ray of 8 days ago. Upright of the abdomen shows tremendous amount of stool throughout the abdomen, no major dilatation, a couple of very slight air-fluid levels. White blood count is elevated today, C-reactive protein very mildly elevated. This is compatible with early pneumonia. Need to rule out UTI or pyelonephritis, awaiting UA results at this time. 03:20. UA has come back normal. she took her own morphine but after arrival to ED. We also did give 1 mg Ativan to help her with her severe anxiety and hyperventilation on arrival. With that she is relaxed, no resting quite comfortably. Continues to have mild nonproductive cough. Sats are in the low 90s with O2 at 2 L nasal cannula. In nature and her oxygen off a short time ago sats dropped to 86-87% room air at rest. They would drop lower with ambulation. She's not interested in being admitted into the hospital. She wants to go home. I am going to order Levaquin 750 mg IV and then we will continue that 500 mg daily for a week. She has had a neb treatment. She's had Solu-Medrol 125 mg IV. I am not going to call [facility] at 3:00 in the morning to set her up for home oxygen. therefore we will keep her here in the ED the remainder of the night on oxygen. My plan is for us to call [facility] around 6 :30 this morning, a more reasonable time and then get things set up for her to have an oxygen concentrator pain, tubing etc. so she can maintain a safe oxygen level at home. We'll also do another short round of steroid medication for about the next 6 days. 4 recommend followup at the clinic either later this week or early next week. Her states that she also is scheduled for some GI testing next week. Departure - Departure Disposition: Home, Self-Care 01 Clinical Impression: COPD exacerbation, Pneumonia, Hypoxemia Instructions: Smoking Cessation, Tips for Success, [id number], Chronic Obstructive Pulmonary Disease, [id number], Community-Acquired Pneumonia, Adult , [id number] Referrals: Jenni Luu PA-C [Primary Care Provider] - Forms: ED Department Discharge <Tyrone Preston - Last Filed: 09/03/16 10:55> Course - Re-Assessments/Exams Free Text/Narrative Re-Assessment/Exam: 09/03/16 10:42 This computer record became inadvertently locked, and was not able to be unlocked until this time. As Dr. Uribe's shift has ended, we agreed that I would document the patient's disposition on his behalf. The patient was diagnosed with COPD exacerbation, pneumonia, and hypoxemia. She was offered admission, but declined. She was given IV Levaquin here in the ED, and discharged home with written prescriptions for Levaquin 500 mg, 1 tab po Qday, Disp #7, NR, and prednisone 20 mg, 2 tabs po QAM x 3 days, then 1 tab po QAM x 2 days, NR. As the patient's oxygen saturation was approximately 86% on room air, arrangements were made for the patient to receive home oxygen, 2L/min, continuously. The patient was instructed to followup with her PCP either later this week or early next week. Departure - Departure Time of Disposition: 07:45 Condition: fair
[2016-09-03] MEDS ORDERED: Levofloxacin 250 MG Tab PO ONE (02:27)
[2016-09-03] MEDS ORDERED: Levofloxacin/Dextrose 5%-Water 750 MG in Premix Bag 1 BAG IV ONE (02:39)
--- NOTE | 2016-09-03 07:10 | CR ---
Chest: Portable view of the chest was obtained. Comparison: Previous chest x-ray of 08/25/16. Heart size slightly prominent but accentuated from portable technique. Central lung markings are increased and difficult to exclude mild pulmonary vascular congestion. Lungs otherwise are clear. Bony structures are grossly intact. Impression: 1. Mild increased lung markings and difficult to exclude pulmonary vascular congestion. If this does not correlate clinically, findings are likely accentuated from portable technique. Diagnostic code #3
--- NOTE | 2016-09-03 07:10 | CR ---
Abdomen: Supine and upright views of the abdomen were obtained. Comparison: Previous abdominal x-ray of 08/23/16. Surgical clips are seen overlying the sacrum. Surgical clips are seen from prior cholecystectomy. Scattered stool is seen throughout the colon. There are some small bowel loops of gas being seen. Overall this bowel gas pattern is felt to be within normal limits. No free air is seen. Bony structures are unremarkable. Impression: 1. Nonspecific two-view abdominal x-ray as described above. Diagnostic code #2
== END 2016-09-03 08:25 | disposition home or self-care (01) ==
LOC: JD.ED 21:36 → SUPCPDRO 21:36 → JD.ED 09-03 08:25
DX: J44.0 Chronic obstructive pulmonary disease with (acute) lower respiratory infection (principal); J18.9 Pneumonia, unspecified organism; J44.1 Chronic obstructive pulmonary disease with (acute) exacerbation; R09.02 Hypoxemia; R10.11 Right upper quadrant pain; F41.9 Anxiety disorder, unspecified; R06.4 Hyperventilation; M54.5 Low back pain; G89.29 Other chronic pain; F17.200 Nicotine dependence, unspecified, uncomplicated; Z88.8 Allergy status to other drugs, medicaments and biological substances; Z79.899 Other long term (current) drug therapy; Z79.82 Long term (current) use of aspirin
CPT/HCPCS: 36415; 71010; 74020; 80053; 81003; 82977; 83605; 83690; 85025; 86140; 87040; 87804; 93005; 94664; 96361; 96365; 99285; A9270; J1956; J2930; J7040; J7050; 99284

== ENCOUNTER 2017-08-30 21:04 | Emergency (ER) | payer BC ==
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
[2017-08-30] MEDS ORDERED: HYDROmorphone 0.5 MG/0.5 ML SYRINGE IVPUSH ONE ×2 (22:22→23:44)
[2017-08-30] MEDS ORDERED: Metoclopramide 10 MG/2 ML SDV IVPUSH ONE (22:23)
[2017-08-30] MEDS ORDERED: Dextrose 5%-0.9% NaCl 1,000 ML IV SCH (22:30)
[2017-08-31 00:45] VITALS: BP 115/62
--- NOTE | 2017-08-31 08:00 | CT ---
CT of lumbar spine Technique: Multiple axial sections were obtained from above the T11-T12 disc inferiorly through the L5-S1 disc. Reconstructed sagittal and coronal images were reviewed. Comparison: No prior lumbar spine imaging. Findings: T11-T12: Slight disc calcification is seen. T12-L1: Very slight posterior disc bulge is noted. Calcification noted within the posterior annulus. L1-L2: Minimal annular calcification posteriorly. L5-S1: Severe disc space narrowing noted. Posterior laminectomy noted at L5. Soft tissue density seen within the neural foramina L5-S1 most likely representing scar tissue. Soft tissue densities are seen within the posterior back compatible with previous surgery at L5. Lucencies are seen within the right side at L5-S1 compatible with previous transpedicle screw placements. No acute bony abnormality is seen. Impression: 1. Postoperative change at L5-S1 with posterior laminectomy. Soft tissue density within the right neural foramen is seen most likely representing scar tissue. MRI with contrast could confirm if clinically needed. 2. Other less prominent degenerative change as noted above. Diagnostic code #3 I agree with preliminary report from [facility], finalized at 08/31/17, 12:26 AM Central Time
== END 2017-08-31 00:17 | disposition home or self-care (01) ==
LOC: JD.ED 21:04
DX: M54.5 Low back pain (principal); F17.210 Nicotine dependence, cigarettes, uncomplicated; Z79.82 Long term (current) use of aspirin; Z79.899 Other long term (current) drug therapy; Z91.048 Other nonmedicinal substance allergy status; Z88.5 Allergy status to narcotic agent; Z88.1 Allergy status to other antibiotic agents
CPT/HCPCS: 72131; 96361; 96374; 96375; 96376; 99284; J1170; J2765; J7042

== ENCOUNTER 2018-03-13 00:17 | Emergency (ER) | payer BC ==
[2018-03-13] MEDS ORDERED: Ondansetron 4 MG/2 ML SDV IVPUSH ONE (00:40)
[2018-03-13] MEDS ORDERED: HYDROmorphone 0.5 MG/0.5 ML SYRINGE IVPUSH STA (00:41)
--- NOTE | 2018-03-13 00:43 | EDM.PDOC ---
ED HPI GENERAL MEDICAL PROBLEM - General Chief Complaint: Abdominal Pain Stated Complaint: BULDGE IN STOMACH ABDOMINAL PAIN Time Seen by Provider: 03/13/18 00:26 Source of Information: Reports: Patient, Family (), RN Notes Reviewed History Limitations: Reports: No Limitations - History of Present Illness INITIAL COMMENTS - FREE TEXT/NARRATIVE: The patient states that she has been experiencing periumbilical abdominal pain for about 1.5 years, and saw a surgeon about an 8-9 months ago. She states that he did not run any tests, and told her that the problem was "cosmetic", that surgery was not needed, and that nothing could be done about it. She does not recall what the diagnosis was, or even the surgeon's name. The patient states that her chronic abdominal pain increased around noon today, without injury. The pain is made worse if she lies supine. No associated fever, nausea, vomiting, constipation, diarrhea, or urinary symptoms. The patient states that when she underwent a cholecystectomy a number of years ago, it was discovered that she had an umbilical hernia, which was then repaired at the same time. The patient takes Percocet for chronic back pain, and indicates that she took a Percocet shortly before coming to the ED. The patient's PCP is Jenni Luu. Middle Abdomen Pain Score (Numeric/FACES): 8 - Related Data Allergies Allergy/AdvReac Type Severity Reaction Status Date / Time ceftriaxone [From Rocephin] Allergy Swelling Verified 09/02/16 21:43 morphine Allergy Difficulty Verified 08/30/17 22:15 Breathing NSAIDS (Non-Steroidal Allergy Abdominal Verified 09/02/16 21:43 Anti-Inflamma Pain Bandages all tape adhesives Allergy Swelling Uncoded 09/02/16 21:43 Home Meds: Home Meds Estradiol 2 mg PO DAILY 11/29/13 [History] Cyclobenzaprine [Flexeril] 10 mg PO TID PRN 08/23/16 [History] Aspirin 81 mg PO DAILY 08/25/16 [History] oxyCODONE 10 - 325 mg PO Q68H PRN 08/25/16 [History] Fluticasone/Vilanterol [Breo Ellipta 200-25 MCG Inhalation Kit] 1 puff INH DAILY 08/30/17 [History] Furosemide [Lasix] 40 mg PO BID 08/30/17 [History] Ranitidine [Zantac] 150 mg PO DAILY 03/13/18 [History] Sennosides/Docusate Sodium [Senna-Docusate Sodium Tablet] 1 tab PO DAILY [History] atorvaSTATin [Lipitor] 20 mg PO DAILY 03/13/18 [History] Past Medical History HEENT History: Reports: Impaired Vision Other HEENT History: Wears glasses Cardiovascular History: Reports: High Cholesterol Respiratory History: Reports: COPD Genitourinary History: Reports: Renal Calculus 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: Musculoskeletal History: Reports: Back Pain, Chronic - Past Surgical History HEENT Surgical History: Reports: Tonsillectomy GI Surgical History: Reports: Cholecystectomy, Hernia, Abdominal (umbilical) Neurological Surgical History: Reports: Lumbar Spine (fusion x 3) Musculoskeletal Surgical History: Reports: ORIF (right wrist) Oncologic Surgical History: Reports: Biopsy of Breast (right) Social & Family History - Family History Family Medical History: Noncontributory - Tobacco Use Smoking Status *Q: Current Every Day Smoker Years of Tobacco use: 39 Packs/Tins Daily: 1 Packs/Tins Daily Comment: Down from 1.5 ppd - Caffeine Use Caffeine Use: Reports: Coffee, Soda, Tea - Alcohol Use Alcohol Use History: No - Recreational Drug Use Recreational Drug Use: No - Living Situation & Occupation Living situation: Reports: , with Spouse, with Family (Son, his girlfriend, 3 grandkids) Occupation: Retired ED ROS GENERAL - Review of Systems Review Of Systems: ROS reveals no pertinent complaints other than HPI. ED EXAM, GI/ABD - Physical Exam Exam: See Below Exam Limited By: No Limitations General Appearance: Alert, WD/WN, Mild Distress (Appears anxious, uncomfortable) Eyes: Bilateral: Normal Appearance, EOMI Ears: Normal External Exam, Hearing Grossly Normal Nose: Normal Inspection, No Blood Throat/Mouth: Normal Inspection, Normal Lips, Normal Voice, No Airway Compromise Head: Atraumatic, Normocephalic Neck: Normal Inspection, Full Range of Motion Respiratory/Chest: No Respiratory Distress, Lungs Clear, Normal Breath Sounds, No Accessory Muscle Use Cardiovascular: Normal Peripheral Pulses, Regular Rate, Rhythm, No Edema, No Gallop, No JVD, No Murmur, No Rub GI/Abdominal Exam: Normal Bowel Sounds (active), Soft, No Organomegaly, No Distention, No Abnormal Bruit, No Mass, Tender (Rosalba-umbilical and right upper quadrant only. Essentially nontender elsewhere.). No: Hernia (No easily reducible hernia palpated) (Female) Exam: Deferred Rectal (Female) Exam: Deferred Back Exam: Normal Inspection, Full Range of Motion, Other (Well-healed lumbar surgical scars). No: CVA Tenderness (L), CVA Tenderness (R) Extremities: Normal Inspection, Normal Range of Motion, No Pedal Edema, Normal Capillary Refill Neurological: Alert, Oriented, Normal Cognition, No Motor/Sensory Deficits Psychiatric: Normal Affect Skin Exam: Warm, Dry, Intact, Normal Color, No Rash Course - Vital Signs Last Recorded V/S: Last Vital Signs Temp 36.9 C 03/13/18 00:24 Pulse 82 03/13/18 00:24 Resp 18 03/13/18 00:24 BP 161/78 H 03/13/18 00:24 Pulse Ox 95 03/13/18 00:24 - Orders/Labs/Meds Orders: Active Orders 24 hr Category Date Time Status Abdomen Pelvis w Cont [CT] Stat Exams 03/13/18 00:40 Taken Sodium Chloride 0.9% [Normal Saline] 1,000 ml Med 03/13/18 00:45 Active IV ASDIRECTED Medication Orders Sodium Chloride (Normal Saline) 1,000 mls @ 150 mls/hr IV ASDIRECTED NICOLÁS Last Admin: 03/13/18 00:53 Dose: 150 mls/hr Labs: Laboratory Tests 03/13/18 03/13/18 03/13/18 Range/Units 00:40 00:45 01:46 WBC 13.74 H (3.98-10.04) K/mm3 RBC 5.15 (3.98-5.22) M/mm3 Hgb 17.0 H (11.2-15.7) gm/L Hct 48.5 H (34.1-44.9) % MCV 94.2 (79.4-94.8) fl MCH 33.0 H (25.6-32.2) pg MCHC 35.1 (32.2-35.5) g/dl RDW Std Deviation 43.7 (36.4-46.3) fL Plt Count 291 (182-369) K/mm3 MPV 9.5 (9.4-12.3) fl Neutrophils % (Manual) 54 (40-60) % Band Neutrophils % 0 (0-10) % Lymphocytes % (Manual) 27 (20-40) % Atypical Lymphs % 4 % Monocytes % (Manual) 12 H (2-10) % Eosinophils % (Manual) 1 (0.7-5.8) % Basophils % (Manual) 2 H (0.1-1.2) Platelet Estimate Adequate Plt Morphology Comment Normal Anisocytosis 1+ slight Microcytosis 1+ slight Macrocytosis 1+ slight RBC Morph Comment Abnormal Sodium 136 (136-145) mEq/L Potassium 4.1 (3.5-5.1) mEq/L Chloride 101 (98-107) mEq/L Carbon Dioxide 27 (21-32) mEq/L Anion Gap 12.1 (5-15) BUN 19 H (7-18) mg/dL Creatinine 0.9 (0.55-1.02) mg/dL Est Cr Clr Drug Dosing 63.55 mL/min Estimated GFR (MDRD) > 60 (>60) mL/min BUN/Creatinine Ratio 21.1 H (14-18) Glucose 115 H (74-106) mg/dL Calcium 9.6 (8.5-10.1) mg/dL Total Bilirubin 0.2 (0.2-1.0) mg/dL AST 12 L (15-37) U/L ALT 18 (14-59) U/L Alkaline Phosphatase 95 (46-116) U/L Total Protein 7.6 (6.4-8.2) g/dl Albumin 3.7 (3.4-5.0) g/dl Globulin 3.9 gm/dL Albumin/Globulin Ratio 1.0 (1-2) Lipase 93 (73-393) U/L Urine Color Yellow (Yellow) Urine Appearance Clear (Clear) Urine pH 5.5 (5.0-8.0) Ur Specific [place] 1.020 (1.005-1.030) Urine Protein Negative (Negative) Urine Glucose (UA) Negative (Negative) Urine Ketones Negative (Negative) Urine Occult Blood Negative (Negative) Urine Nitrite Negative (Negative) Urine Bilirubin Negative (Negative) Urine Urobilinogen 0.2 (0.2-1.0) Ur Leukocyte Esterase Negative (Negative) Urine RBC Not seen (0-5) /hpf Urine WBC 0-5 (0-5) /hpf Ur Epithelial Cells 0-5 (0-5) /hpf Urine Bacteria Occasional (FEW) /hpf Urine Mucus Not seen (FEW) /hpf Urine HCG, Qual (NEGATIVE) 03/13/18 Range/Units 01:46 WBC (3.98-10.04) K/mm3 RBC (3.98-5.22) M/mm3 Hgb (11.2-15.7) gm/L Hct (34.1-44.9) % MCV (79.4-94.8) fl MCH (25.6-32.2) pg MCHC (32.2-35.5) g/dl RDW Std Deviation (36.4-46.3) fL Plt Count (182-369) K/mm3 MPV (9.4-12.3) fl Neutrophils % (Manual) (40-60) % Band Neutrophils % (0-10) % Lymphocytes % (Manual) (20-40) % Atypical Lymphs % % Monocytes % (Manual) (2-10) % Eosinophils % (Manual) (0.7-5.8) % Basophils % (Manual) (0.1-1.2) Platelet Estimate Plt Morphology Comment Anisocytosis Microcytosis Macrocytosis RBC Morph Comment Sodium (136-145) mEq/L Potassium (3.5-5.1) mEq/L Chloride (98-107) mEq/L Carbon Dioxide (21-32) mEq/L Anion Gap (5-15) BUN (7-18) mg/dL Creatinine (0.55-1.02) mg/dL Est Cr Clr Drug Dosing mL/min Estimated GFR (MDRD) (>60) mL/min BUN/Creatinine Ratio (14-18) Glucose (74-106) mg/dL Calcium (8.5-10.1) mg/dL Total Bilirubin (0.2-1.0) mg/dL AST (15-37) U/L ALT (14-59) U/L Alkaline Phosphatase (46-116) U/L Total Protein (6.4-8.2) g/dl Albumin (3.4-5.0) g/dl Globulin gm/dL Albumin/Globulin Ratio (1-2) Lipase (73-393) U/L Urine Color (Yellow) Urine Appearance (Clear) Urine pH (5.0-8.0) Ur Specific [place] (1.005-1.030) Urine Protein (Negative) Urine Glucose (UA) (Negative) Urine Ketones (Negative) Urine Occult Blood (Negative) Urine Nitrite (Negative) Urine Bilirubin (Negative) Urine Urobilinogen (0.2-1.0) Ur Leukocyte Esterase (Negative) Urine RBC (0-5) /hpf Urine WBC (0-5) /hpf Ur Epithelial Cells (0-5) /hpf Urine Bacteria (FEW) /hpf Urine Mucus (FEW) /hpf Urine HCG, Qual Negative (NEGATIVE) Meds: Medications Generic Name Dose Route Start Last Admin Trade Name Freq PRN Reason Stop Dose Admin Sodium Chloride 1,000 mls @ 150 mls/hr 03/13/18 00:45 03/13/18 00:53 Normal Saline IV 150 mls/hr ASDIRECTED NICOLÁS Administration Discontinued Medications Generic Name Dose Route Start Last Admin Trade Name Freq PRN Reason Stop Dose Admin Diatrizoate Meglum/Diatrizoate Sod 90 ml 03/13/18 01:40 03/13/18 01:51 Gastrografin 37% PO 03/13/18 01:41 90 ml ONETIME ONE Administration Hydromorphone HCl 1 mg 03/13/18 00:41 03/13/18 00:52 Dilaudid IVPUSH 03/13/18 00:42 1 mg ONETIME STA Administration Iopamidol 100 ml 03/13/18 01:40 03/13/18 01:51 Isovue-300 (61%) IVPUSH 03/13/18 01:41 100 ml ONETIME ONE Administration Ondansetron HCl 4 mg 03/13/18 00:40 03/13/18 00:50 Zofran IVPUSH 03/13/18 00:41 4 mg ONETIME ONE Administration Sodium Chloride 10 ml 03/13/18 01:40 03/13/18 01:51 Saline Flush FLUSH 03/13/18 01:41 10 ml ONETIME ONE Administration - Re-Assessments/Exams Free Text/Narrative Re-Assessment/Exam: 03/13/18 00:42 The cause of the patient's periumbilical pain and tenderness is not immediately clear. It may be due to an incarcerated hernia. I have ordered blood work, urinalysis, and a CT scan of the abdomen and pelvis with oral and IV contrast. In the meantime, I have ordered IV fluid, IV Dilaudid, and Zofran. 03/13/18 03:05 The kelly of the abdomen and pelvis with oral and IV contrast is read by [facility] as: 1. Diastasis of the abdominis rectus. Small, fat-containing umbilical hernia. 2. Nonobstructive nephrolithiasis. 3. Gastroesophageal reflux. 4. Postsurgical changes involving the lower lumbar spine without evidence of complication. 03/13/18 03:11 Test results discussed with the patient. The patient has an elevated WBC count of 13.74, but with 0% bandemia, and no other suggestion of an infection. The remainder of her workup, including that of her CT scan, is unremarkable, and does not explain the cause of the patient's pain. I will discharge the patient home with a referral to Dr. Rosen, the patient can contact on Thursday if she is still having pain. Departure - Departure Time of Disposition: 03:13 Disposition: Home, Self-Care 01 Condition: Good Clinical Impression: Periumbilical abdominal pain of unknown etiology - Discharge Information *PRESCRIPTION DRUG MONITORING PROGRAM REVIEWED*: Not Applicable *COPY OF PRESCRIPTION DRUG MONITORING REPORT IN PATIENT JARRETT: Not Applicable Referrals: Jenni Luu PA-C [Primary Care Provider] - Pb Rosen MD [Physician] - Forms: ED Department Discharge Additional Instructions: You were seen in the emergency room for pain around your umbilicus (belly button ). Workup in the ER included blood work, urinalysis, a urine test, and a CT scan of your abdomen and pelvis with oral and IV contrast. Your entire workup was unremarkable, and does not explain the cause of your pain. If you are still having pain by 03/15/2018, please follow-up with the surgeon Dr. Pb Rosen. If any other problems, please do not hesitate to return to the ER. - My Orders Last 24 Hours: My Active Orders 03/13/18 00:40 Abdomen Pelvis w Cont [CT] Stat 03/13/18 00:45 Sodium Chloride 0.9% [Normal Saline] 1,000 ml IV ASDIRECTED - Assessment/Plan Last 24 Hours: My Active Orders 03/13/18 00:40 Abdomen Pelvis w Cont [CT] Stat 03/13/18 00:45 Sodium Chloride 0.9% [Normal Saline] 1,000 ml IV ASDIRECTED
[2018-03-13] MEDS ORDERED: Sodium Chloride 0.9% 1,000 ML IV SCH (00:45)
[2018-03-13] MEDS ORDERED: Iopamidol 612 MG/ML 100 ML Bottle IVPUSH ONE (01:40)
[2018-03-13] MEDS ORDERED: Diatrizoate Meglumine/Diatrizoate Sodium 37% 120 ML Bottle PO ONE (01:40)
[2018-03-13] MEDS ORDERED: Sodium Chloride 0.9% 10 ML Syringe FLUSH ONE (01:40)
[2018-03-13 03:37] VITALS: BP 111/68
--- NOTE | 2018-03-15 07:15 | CT ---
CT abdomen and pelvis Technique: Multiple axial sections were obtained from above the dome of the diaphragm inferiorly through the pubic symphysis. Intravenous and oral contrast was utilized. Delayed images were obtained through the bladder. Comparison: No prior CT abdomen or pelvis exam is available. Findings: Visualized lung bases show nothing acute. Liver shows no focal parenchymal abnormality. Surgical clips noted from prior cholecystectomy. Small amount of contrast noted within the distal esophagus compatible with minimal reflux. Spleen appears within normal limits. Adrenal glands show no nodule. Pancreas is normal. Surgical clips are seen from prior cholecystectomy. Kidney show symmetric contrast enhancement. Nonobstructing stone noted within the mid right kidney measuring approximately 7 mm. Kidneys are otherwise unremarkable in their appearance. Aorta shows mild atherosclerotic change without aneurysm. No retroperitoneal adenopathy or mesenteric abnormalities are seen. Minimal diastasis of the rectus muscle at the level of the umbilicus is noted. Minimal fat-containing umbilical hernia is incidentally noted. No pelvic mass or adenopathy is seen. Appendix is seen which is normal in size. No free fluid or inflammatory change is seen. Delayed images show contrast within the distal ureters and within the bladder. Bone window settings were reviewed which show evidence of previous surgery at L5-S1. Lucent defects are noted from previous transpedicle screws which have been removed within L5 and S1. Intervertebral disc fixation device seen at L5-S1. Impression: 1. Incidental findings as noted above. Nothing acute is appreciated. Diagnostic code #2 I agree with preliminary report from [facility], finalized on 03/13/18, 4:01 AM Central Time
== END 2018-03-13 03:37 | disposition home or self-care (01) ==
LOC: JD.ED 00:17
DX: R10.33 Periumbilical pain (principal); F17.210 Nicotine dependence, cigarettes, uncomplicated; Z88.5 Allergy status to narcotic agent; Z88.8 Allergy status to other drugs, medicaments and biological substances; Z79.82 Long term (current) use of aspirin; Z79.899 Other long term (current) drug therapy; Z88.1 Allergy status to other antibiotic agents; Z90.49 Acquired absence of other specified parts of digestive tract
CPT/HCPCS: 36415; 74177; 80053; 81001; 81025; 83690; 85007; 85027; 96361; 96374; 96375; 99284; J1170; J2405; J7040; J7050; Q9963; Q9967

== ENCOUNTER 2019-12-14 07:41 | Day surgery (SDC) | payer MEDICARE, BC, OTHER ==
[~2019-12-14 07:41] MED LIST: Albuterol 0.083% 2.5 MG/3 ML Neb Soln NEB PRN; Lactated Ringers 1,000 ML IV SCH; Lidocaine 1%/Sod Bicarbonate in NS 8.4% 1 ML Syringe IDERM PRN; Sodium Chloride 0.9% 10 ML Syringe FLUSH PRN
[2019-12-14] MEDS ORDERED: fentaNYL 100 MCG/2 ML SDV ONE (09:32)
[2019-12-14] MEDS ORDERED: Midazolam 1 MG/ML 2 ML SDV ONE ×2 (09:33→09:57)
[2019-12-14] MEDS ORDERED: Bupivacaine 0.5%/EPINEPHrine 1:200,000 50 ML MDV ONE (09:47)
[2019-12-14] MEDS ORDERED: Lidocaine 1% with EPINEPHrine 1:100,000 20 ML MDV ONE ×2 (09:47→09:51)
[2019-12-14] MEDS ORDERED: Lidocaine 1% 8 ML ONE (09:55)
[2019-12-14] MEDS ORDERED: Propofol 200 MG/20 ML SDV ONE (09:57)
[2019-12-14] MEDS ORDERED: Rocuronium 50 MG/5 ML Vial ONE (09:57)
[2019-12-14] MEDS ORDERED: fentaNYL 250 MCG/5 ML SDV ONE (09:58)
--- NOTE | 2019-12-14 09:58 | PCM.PREANE ---
Preanesthetic Assessment - Procedure Proposed Procedure: Diagnostic laparoscopy with EGD - Anesthesia/Transfusion/Family Hx Anesthesia History: Prior Anesthesia Without Reaction Other Type of Anesthesia Reaction Comment: Denies any known problems, denies any known family history Family History of Anesthesia Reaction: No - Review of Systems General: No Symptoms Pulmonary: Other (COPD, former smoker quit 36 days ago, SpO2 93% on Room Air. ) Cardiovascular: Other (Mitral Regurgitation, Grade I diastolic Dysfunction, EF 60-65%. ) Gastrointestinal: Abdominal Pain (/10 for pain today) Neurological: Pre-Existing Deficit (Chronic Back Pain, Chroic Opioid Use, 10 pain this morning, unable to sit or lay down. Back Surgery x 3. ) Other: Reports: Depression, Anxiety - Physical Assessment NPO Status Date: 12/13/19 NPO Status Time: 20:30 Vital Signs: Last Vital Signs Temp 36.8 C 12/14/19 07:50 Pulse 70 12/14/19 07:50 Resp 16 12/14/19 07:50 BP 134/71 12/14/19 07:50 Pulse Ox 93 L 12/14/19 07:50 Height: 1.65 m Weight: 104.78 kg ASA Class: 3 Mental Status: Alert & Oriented x3 Airway Class: Mallampati = 3 Dentition: Reports: Normal Dentition Thyro-Mental Finger Breadths: 2 Mouth Opening Finger Breadths: 3 ROM/Head Extension: Full Lungs: Clear to Auscultation, Normal Respiratory Effort Cardiovascular: Regular Rate, Regular Rhythm - Lab Values: Laboratory Last Values COVID-19 PCR Not detected (NOT DETECT) 12/12/19 11:00 - Allergies Allergies/Adverse Reactions: Allergies Allergy/AdvReac Type Severity Reaction Status Date / Time cefazolin [From Ancef] Allergy Edema Verified 12/13/19 13:28 ceftriaxone [From Rocephin] Allergy Swelling Verified 12/13/19 13:28 morphine Allergy Difficulty Verified 12/13/19 13:28 Breathing NSAIDS (Non-Steroidal Allergy Abdominal Verified 12/13/19 13:28 Anti-Inflamma Pain Bandages all tape adhesives Allergy Swelling Uncoded 09/02/16 21:43 - Blood Blood Available: No - Anesthesia Plan Pre-Op Medication Ordered: Anxiolytic, Other (Fentanyl ) - Acknowledgements Anesthesia Type Planned: General Anesthesia Pt an Appropriate Candidate for the Planned Anesthesia: Yes Alternatives and Risks of Anesthesia Discussed w Pt/Guardian: Yes Pt/Guardian Understands and Agrees with Anesthesia Plan: Yes Additional Comments: Lillian has extreme back pain for years. Her last surgery in 2018 was done in [place] at the spine center. She rates her pain a 10/10. She takes pain medications every 4 hours to keep her pain tolerable 6/10 rating. Preoperative medications was needed to assist her onto the cart. She has now stopped shaking and is able to lie down on the cart. Her pain continues at a 10/10 but feels the edge has been taken off. Dr. Hein is present at the bedside and is aware of her chronic pain and requirements for management. 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: Musculoskeletal History: Reports: Back Pain, Chronic Other Musculoskeletal History: back surgeries x 3; bone graft from hip to back Psychiatric History: Reports: Anxiety, Depression Oncologic (Cancer) History: Reports: Other (See Below) Other Oncologic History: skin cancer - Past Surgical History HEENT Surgical History: Reports: Cataract Surgery, Tonsillectomy GI Surgical History: Reports: Cholecystectomy, Colonoscopy, EGD, Polypectomy Female Surgical History: Reports: Cystectomy, Hysterectomy, Ureteral Stent Neurological Surgical History: Reports: Spinal Fusion Musculoskeletal Surgical History: Reports: Carpal Tunnel Dermatological Surgical History: Reports: Skin Biopsy - SUBSTANCE USE Smoking Status *Q: Former Smoker Tobacco Use Within Last Twelve Months: Cigarettes Recreational Drug Use History: No - HOME MEDS Home Medications: Home Meds estradioL [Estradiol] 2 mg PO DAILY 11/29/13 [History] Aspirin 81 mg PO DAILY 08/25/16 [History] oxyCODONE 10 - 325 mg PO Q4HR PRN 08/25/16 [History] Fluticasone/Vilanterol [Breo Ellipta 200-25 MCG Inhalation Kit] 1 puff INH DAILY PRN 08/30/17 [History] Furosemide [Lasix] 40 mg PO BID 08/30/17 [History] atorvaSTATin [Lipitor] 20 mg PO DAILY 03/13/18 [History] Albuterol Sulfate [Albuterol Sulfate Hfa] 1 puff INH ASDIRECTED PRN 12/13/19 [History] DULoxetine [Cymbalta] 30 mg PO BID 12/13/19 [History] Famotidine [Pepcid AC] 10 mg PO DAILY 12/13/19 [History] Losartan Potassium 25 mg PO DAILY 12/13/19 [History] Metaxalone [Skelaxin] 400 mg PO QID 12/13/19 [History] Omeprazole Magnesium [Prilosec Otc] 20 mg PO DAILY 12/13/19 [History] Ondansetron [Zofran] 4 mg PO ASDIRECTED PRN 12/13/19 [History] Potassium Gluconate [Potassium] 1 tab PO DAILY 12/13/19 [History] Wheat Dextrin [Benefiber] 4 tsp PO DAILY 12/13/19 [History] buPROPion HCL [Wellbutrin Xl] 150 mg PO BID 12/13/19 [History] traZODone HCl [Trazodone HCl] 125 mg PO BEDTIME 12/13/19 [History] - CURRENT (IN HOUSE) MEDS Current Meds: Current Medications Albuterol (Proventil Neb Soln) 2.5 mg NEB ONETIME PRN PRN Reason: bronchodilation Stop: 12/14/19 18:00 Last Admin: 12/14/19 08:51 Dose: 2.5 mg Documented by: Lactated Ringer's (Ringers, Lactated) 1,000 mls @ 125 mls/hr IV ASDIRECTED NICOLÁS Stop: 12/14/19 23:00 Last Admin: 12/14/19 08:10 Dose: 125 mls/hr Documented by: Clindamycin Phosphate 900 mg/ (Premix) 50 mls @ 100 mls/hr IV ONETIME ONE Stop: 12/14/19 10:29 Lidocaine/Sodium Bicarbonate (Buffered Lidocaine 1% In Ns 8.4%) 0.25 ml IDERM ONETIME PRN PRN Reason: Prior to IV Start Stop: 12/14/19 18:00 Last Admin: 12/14/19 08:09 Dose: 0.25 ml Documented by: Sodium Chloride (Saline Flush) 10 ml FLUSH ASDIRECTED PRN PRN Reason: Keep Vein Open Stop: 12/14/19 18:00 Discontinued Medications Fentanyl (Sublimaze) Confirm Administered Dose 100 mcg .ROUTE .STK-MED ONE Stop: 12/14/19 09:33 Midazolam HCl (Versed 1 Mg/Ml) Confirm Administered Dose 2 mg .ROUTE .STK-MED ONE Stop: 12/14/19 09:34
[2019-12-14] MEDS ORDERED: Succinylcholine/Sod PF 100 MG/5 ML SYRINGE IV ONE (09:59)
[2019-12-14] MEDS ORDERED: Clindamycin Phosphate in D5W 900 MG in Premix Bag 1 BAG IV ONE ×2 (10:00)
[2019-12-14] MEDS ORDERED: Ondansetron 4 MG/2 ML SDV ONE (10:06)
[2019-12-14] MEDS ORDERED: Lactated Ringers 1,000 ML ONE (10:20)
[2019-12-14] MEDS ORDERED: HYDROmorphone 0.5 MG/0.5 ML Syringe IVPUSH PRN (10:44)
--- NOTE | 2019-12-14 11:26 | PCM.OPNOTE ---
- General Post-Op/Procedure Note Date of Surgery/Procedure: 12/14/19 Operative Procedure(s): 1. EGD with biopsies. 2. Diagnostic laparoscopy. 3. Lysis of adhesions Findings: 1. Abdomen with minimal adhesions in the gallbladder fossa 2. Gastric mucosa with mucosal hypertrophy and gastritis in the antrum 3. Irregular GE junction Pre Op Diagnosis: Abdominal pain, history of gastric intestinal metaplasia Post-Op Diagnosis: same Anesthesia Technique: General ET Tube Primary Surgeon: Mindi Rosales Anesthesia Provider: Spike Mcmahan Pathology: 1. Gastric antrum biopsies #1 2. Gastric antrum biopsies #2 3. Greater curvature biopsies 4. Lesser curvature biopsies 5. Fundus biopsies 6. GE junction biopsies Fluid Replacement, Intraop: 1,600 Output, Urine Amount: 0 EBL in mLs: 5 Complications: none apparent Condition: Good
--- NOTE | 2019-12-14 11:27 | PCM.PRNOTE ---
- Free Text/Narrative Note: Operative Report Date of procedure: December 14, 2019 Preoperative diagnosis: Abdominal pain, history of gastric intestinal metaplasia Postoperative diagnosis: Same Surgeon: Mindi Rosales M.D. Procedure: 1. EGD with biopsies 2. Diagnostic laparoscopy 3. Lysis of adhesions Anesthesia: General ET with local Heating And Ventilating Drafter: Spike Mcmahan CRNA IV fluids: 1600 mL Estimated blood loss: 5 mL Findings: 1. Abdomen with minimal adhesions in the gallbladder fossa 2. Gastric mucosa with mucosal hypertrophy and gastritis in the antrum 3. Irregular GE junction Specimens: 1. Gastric antrum biopsies #1 2. Gastric antrum biopsies #2 3. Greater curvature biopsies 4. Lesser curvature biopsies 5. Fundus biopsies 6. GE junction biopsies Indication: The patient is a 59 -year-old lady who presented with history of abdominal pain. She had EGD completed with findings of gastritis and gastric intestinal metaplasia. She was did with acid suppression therapy, continued to have pain. The patient's main complaint was right upper quadrant abdominal pain, but also had pain in the periumbilical area that radiated up to the substernal area. The patient was consented for an EGD with intervention. Risk of bleeding and perforation were discussed. The patient's consent was obtained Description of the procedure: The patient was taken to the operating room and placed in supine position on the operating table. She had successful induction of general anesthesia and was intubated without difficulty. Preoperative antibiotics of 900 mg clindamycin was given. A timeout was performed. She was then prepped and draped in standard surgical fashion. A 5 mm incision was then made in the left upper quadrant and a 5 mm port was inserted into the abdomen under direct visualization. We then insufflated the abdomen successfully to 15 mmHg. A TAP block was performed with 60mL of mixed 1% lidocaine with epinephrine and 0.5% bupivacaine with epinephrine. We then proceeded to survey the abdomen. There was no umbilical or epigastric hernia noted. The abdominal wall was palpated and visualized in this area. A second 5 mm port was placed in the right upper quadrant under direct visualization for better manipulation of the tissues. The right upper quadrant was well visualized. The liver edge was lifted and there were some adhesions in the area of the patient's previous cholecystectomy. A LigaSure device was then used to take down some of these adhesions. There was no abnormal findings in this area. The pelvis was viewed and there was no evidence of inguinal hernia. The omentum was very dense and fatty. This was moved aside in the pelvis to visualize the small bowel underneath. There was no abnormality noted in this area either. There were no adhesions to the abdominal wall. The left upper quadrant port was then removed under visualization with no evidence of bleeding. The abdomen was then desufflated and the remaining port removed. The port sites were closed with 4-0 Monocryl suture. Dermabond was applied. We then proceeded with the EGD portion of the procedure. 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 A bite block was in place. The endoscope was gently placed into the mouth to the back of the pharynx and introduced into the esophagus. The scope was gently advanced under direct visualization down to the level of the lower esophageal sphincter. The stomach was then entered. Normal rugal folds were noted. The scope was advanced into the antrum. We noted hypertrophic gastric mucosa with erythema. The pylorus was then entered and the first and second portion of the duodenum was inspected. There were no ulcerations in the duodenum. The scope was then withdrawn into the antrum. Biopsies were taken in this area with a cold biopsy forceps for pathology. We then took additional biopsies on the greater and lesser curvatures with a cold biopsy forceps. Scope was retroflexed to view the fundus and additional biopsies were taken with a cold biopsy forceps at the fundus of the stomach. The scope was then retroflexed in the cardia and fundus were investigated. There is no evidence of any hiatal hernia. The scope was withdrawn towards the esophagus and the Z line was then inspected. There was irregularity of the mucosal junction in this area. Biopsies were taken of the GE junction in 4 quadrants using a cold biopsy forceps. The scope was then withdrawn while inspecting the esophagus. There was no esophagitis. The procedure was terminated. the patient tolerated the procedure well without any evidence of complications. She was extubated and transported to the PACU in stable condition. Mindi Rosales MD General Surgery
[2019-12-14] MEDS: fentaNYL 100 MCG/2 ML SDV IVPUSH PRN ×2 (11:43→12:05)
--- NOTE | 2019-12-14 11:49 | PCM.POSTAN ---
POST ANESTHESIA ASSESSMENT - MENTAL STATUS Mental Status: Alert, Oriented - VITAL SIGNS Vital Signs: Last Vital Signs Temp 98.7 F 12/14/19 11:32 Pulse 98 12/14/19 11:32 Resp 19 12/14/19 11:32 BP 156/94 H 12/14/19 11:32 Pulse Ox 94 L 12/14/19 11:32 - RESPIRATORY Respiratory Status: Respiratory Rate WNL, Airway Patent, O2 Saturation Stable, Supplemental Oxygen - CARDIOVASCULAR CV Status: Pulse Rate WNL, Blood Pressure Stable - GASTROINTESTINAL GI Status: No Symptoms - PAIN Pain Score: 7 (orders are entered) - POST OP HYDRATION Hydration Status: Adequate & Stable
[2019-12-14] MEDS ORDERED: Alum Hydrox/Mag Hydrox/Simeth 30 ML, Lidocaine 2% 15 ML PO ONE ×2 (11:52)
[2019-12-14] MEDS ORDERED: traMADol 50 MG Tab PO ONE (12:39)
[2019-12-14] MEDS ORDERED: Albuterol 0.083% 2.5 MG/3 ML Neb Soln NEB ONE (13:15)
--- NOTE | 2019-12-14 14:33 | PCM48HPAN ---
Post Anesthesia Note - EVALUATION WITHIN 48HRS OF ANESTHETIC Vital Signs in Normal Range: Yes Patient Participated in Evaluation: Yes Respiratory Function Stable: Yes Airway Patent: Yes Cardiovascular Function Stable: Yes Hydration Status Stable: Yes Pain Control Satisfactory: Yes Nausea and Vomiting Control Satisfactory: Yes Mental Status Recovered: Yes Vital Signs: Last Vital Signs Temp 99.2 F 12/14/19 14:10 Pulse 80 12/14/19 14:10 Resp 20 12/14/19 14:10 BP 127/57 L 12/14/19 14:10 Pulse Ox 94 L 12/14/19 14:10 - COMMENTS/OBSERVATIONS Free Text/Narrative:: Pain is at tolerable level now, 10/29, the patient is ready to be discharged home.
[2019-12-14 15:05] VITALS: BP 111/64; PULSE 77
== END 2019-12-14 14:55 | disposition home or self-care (01) ==
LOC: JD.SDS 07:41
PROVIDERS: ATTEND Surgery
DX: K29.50 Unspecified chronic gastritis without bleeding (principal); K21.0 Gastro-esophageal reflux disease with esophagitis; K31.89 Other diseases of stomach and duodenum; K66.0 Peritoneal adhesions (postprocedural) (postinfection); E78.00 Pure hypercholesterolemia, unspecified; I11.0 Hypertensive heart disease with heart failure; I50.9 Heart failure, unspecified; J44.9 Chronic obstructive pulmonary disease, unspecified; F41.9 Anxiety disorder, unspecified; G47.33 Obstructive sleep apnea (adult) (pediatric); E78.2 Mixed hyperlipidemia; F32.9 Major depressive disorder, single episode, unspecified; Z11.59 Encounter for screening for other viral diseases; Z90.49 Acquired absence of other specified parts of digestive tract; Z87.891 Personal history of nicotine dependence; Z88.1 Allergy status to other antibiotic agents; Z88.5 Allergy status to narcotic agent; Z88.8 Allergy status to other drugs, medicaments and biological substances; Z79.899 Other long term (current) drug therapy; Z99.89 Dependence on other enabling machines and devices
CPT/HCPCS: 43239; 49329; 88305; 88342; 94640; A9270; J0330; J1170; J2001; J2250; J2405; J2704; J2710; J3010; J3490; J7120; 00840; U0002